=== PATIENT | male | born 2000 | race Caucasian/White ===

== ENCOUNTER 2023-12-06 18:03 | Emergency (ER) | payer MEDICAID, OTHER ==
[~2023-12-06] VITALS: Ht 167.6 cm; Wt 64.2 kg
[2023-12-06 18:57] VITALS: BP 137/95; PULSE 90; RESP 16; TEMP 98.7; O2SAT 96
[2023-12-06] MEDS ORDERED: IBUP1TAB5 PO (19:31)
[2023-12-06] MEDS ORDERED: MUPI2OIN2 EX (19:31)
[2023-12-06] MEDS ORDERED: AUG875T PO (19:31)
[2023-12-06] MEDS: IBUPROFEN 800 MG TAB PO ONE (20:01)
[2023-12-06] MEDS: NEOMYCIN-BACITRACIN-POLYM UNITDOSE PKG TOP OINT TOP ONE (20:01)
[2023-12-06] MEDS: TETANUS-DIPTH-ACEL PERTUSSIS 0.5ML SYR Tdap IM ONE (20:01)
[2023-12-06] MEDS: AMOXICILLIN/CLAVUL 875 MG TAB PO ONE (20:01)
== END 2023-12-06 20:42 | disposition home or self-care (01) ==
LOC: ER 18:05
DX: S61.012A Laceration without foreign body of left thumb without damage to nail, initial encounter (principal); S60.112A Contusion of left thumb with damage to nail, initial encounter; Z79.899 Other long term (current) drug therapy; W54.0XXA Bitten by dog, initial encounter; Y93.89 Activity, other specified; Y92.89 Other specified places as the place of occurrence of the external cause; Y99.8 Other external cause status
CPT/HCPCS: 11740; 73140; 90471; 90715

== ENCOUNTER 2024-05-28 20:55 | Emergency (ER) | payer SELFPAY ==
[~2024-05-28] VITALS: Ht 167.6 cm; Wt 60.3 kg
[~2024-05-28 20:55] MED LIST: AUG875T PO; IBUP1TAB5 PO; MUPI2OIN2 EX
--- NOTE | 2024-05-28 21:26 | ED.PDOC ---
History of Present Illness HPI Comments 23-year-old male with no PMHx or PSHx presents with a chief complaint of flu- like symptoms x 1 week. Patient is endorsing symptoms of poor appetite, cough, fatigue, and vomiting. Patient mentions that he has not had anything to eat for the past x 1 week because whenever he eats or drinks anything he vomits. Patient is tachycardic in the 150s in triage, denies any anxiety or chest pain at this time. Patient states that overall he feels fatigued. No other symptoms or modifying factors present at this time. Chief Complaint: Flu like Time Seen by MD: 21:21 Primary Care Provider: NONE Reviewed Notes: Medications, Allergies Allergies: Coded Allergies: NO KNOWN ALLERGIES (Unverified , 12/06/23) Home Meds Active Scripts Mupirocin (Pseudomonas Fluores (Mupirocin) 2 % Oin, 1 APPLIC EX TID, #15 GM Prov:PARHAMNORALDA Q [employer]SP[employer] SECURITY SCREENER 12/06/23 Ibuprofen Micronized (Ibuprofen) 600 Mg Tab, 1 TAB PO Q6HPRN PRN, #20 TAB as needed for pain Prov:PARHAMCATYALDA Q [employer]SPORTATION SECURITY SCREENER 12/06/23 Amoxicillin & Pot Clavulanate (AUGMENTIN TABLET) 875 Mg Tb, 1 TAB PO BID for 10 Days, #20 TAB Prov:PARHAMCATYALDA Q [employer]SPORTATION SECURITY SCREENER 12/06/23 Information Source: Patient Mode of Arrival: Ambulatory Severity: Moderate Timing: Days Duration: Since onset Prehospital treatment: None Past Medical History PAST MEDICAL HISTORY: Denies Surgical History: Denies all surgeries Family History Family History: Unknown Social History Smoker: Non-Smoker Alcohol: Denies ETOH Use Drugs: Denies Drug Use Lives In: Home Constitutional: reports: fatigue; denies: chills, diaphoresis, fever, malaise, sweats, weakness, others EENTM: denies: blurred vision, double vision, ear bleeding, ear discharge, ear drainage, ear pain, ear ringing, eye pain, eye redness, hearing loss, mouth pain, mouth swelling, nasal discharge, nose bleeding, nose congestion, nose pain, photophobia, tearing, throat pain, throat swelling, voice changes, others Respiratory: reports: cough; denies: hemoptysis, orthopnea, SOB at rest, shortness of breath, SOB with excertion, stridor, wheezing, others Cardiovascular: denies: chest pain, dizzy spells, diaphoresis, Dyspnea on exertion, edema, irregular heart beat, left arm pain, lightheadedness, palpitations, PND, syncope, others Gastrointestinal: reports: poor appetite; denies: abdomen distended, abdominal pain, blood streaked bowels, constipated, diarrhea, dysphagia, difficulty swallowing, hematemesis, melena, nausea, poor fluid intake, rectal bleeding, rectal pain, vomiting, others Genitourinary: denies: burning, dysuria, flank pain, frequency, hematuria, incontinence, penile discharge, penile sore, pain, testicle pain, testicle swelling, urgency, others Neurological: denies: dizziness, fainting, headache, left sided numbness, left sided weakness, numbness, paresthesia, pre-existing deficit, right sided numbness, right sided weakness, seizure, speech problems, tingling, tremors, weakness, others Musculoskeletal: denies: back pain, gout, joint pain, joint swelling, muscle pain, muscle stiffness, neck pain, others Integumetry: denies: bruises, change in color, change in hair/nails, dryness, laceration, lesions, lumps, rash, wounds, others Allergic/Immunocompromised: denies: Difficulty Healing, Frequent Infections, Hives, Itching, others Hematologic/Lymphatic: denies: anemia, blood clots, easy bleeding, easy bruising, swollen glands, others Endocrine: denies: excessive hunger, excessive sweating, excessive thirst, excessive urination, flushing, intolerance to cold, intolerance to heat, unexplained weight gain, unexplained weight loss, others Psychiatric: denies: anxiety, bipolar disorder, depression, hopeless, panic disorder, schizophrenia, sleepless, suicidal, others All Other Systems: Reviewed and Negative Physical Exam General Appearance: No Apparent Distress, Thin HEENT: Normal ENT Inspection, Pharynx Normal, TMs Normal Neck: Full Range of Motion, Non-Tender, Normal, Normal Inspection Respiratory: Chest Non-Tender, Lungs Clear, No Accessory Muscle Use, No Respiratory Distress, Normal Breath Sounds Cardiovascular: No Edema, No JVD, No Murmur, No Gallop, Normal Peripheral Pulses, Tachycardia Breast Exam: Deferred Gastrointestinal: No Organomegaly, Non Tender, No Pulsatile Mass, Normal Bowel Sounds, Soft Genitalia: Deferred Pelvic: Deferred Rectal: Deferred Extremities: No calf tenderness, Normal capillary refill, Normal inspection, Normal range of motion, Non-tender, No pedal edema Musculoskeletal : Apperance: Normal Neurologic: Alert, manager safe II-XII nml as Tested, No Motor Deficits, Normal Affect, Normal Mood, No Sensory Deficits Cerebellar Function: Normal Reflexes: Normal Skin: Dry, Normal Color, Warm Lymphatic: No Adenopathy Was a procedure done? Was a procedure done?: No Differential Dx Considerations may include: Viral syndrome, flu, COVID, gastroenteritis X-Ray, Labs, Meds, VS Vital Signs Date Time Temp Pulse Resp B/P (MAP) Pulse Ox O2 Delivery O2 Flow Rate FiO2 05/29/24 00:43 98.4 138 20 140/87 (104) 97 98.4 05/28/24 21:16 98.7 154 17 138/94 (109) 95 Lab Test 05/28/24 21:15 Range/Units Influenza Type A Antigen Negative Negative Influenza Type B Antigen Negative Negative SARS-CoV-2 Antigen (Rapid) Negative NEGATIVE Current Medications Medications (Trade) Dose Ordered Sig/Gladis Route Start Time Stop Time Status Last Admin Sodium Chloride 1,000 ml @ 1,000 mls/hr Q1H ONCE IV 05/28/24 23:15 05/29/24 00:14 DC 05/29/24 00:53 Ondansetron HCl (Zofran) 4 mg ONCE ONCE IV 05/28/24 23:15 05/28/24 23:16 DC 05/29/24 00:53 Ketorolac Tromethamine (Toradol Injection) 15 mg ONCE ONCE IV 05/28/24 23:15 05/28/24 23:16 DC 05/29/24 00:55 Acetaminophen (Tylenol Tablet) 650 mg ONCE ONCE PO 05/28/24 23:15 05/28/24 23:16 DC 05/29/24 01:03 Time of 1ST Reevaluation: 21:51 Reevaluation 1ST: Unchanged Patient Education/Counseling: Diagnosis, Treatment, Prognosis Family Education/Counseling: No Family Present Departure 1 Departure Time of Disposition: 01:38 (Patient likely with viral gastroenteritis. Patient received fluids Tylenol Zofran. Patient's heart rate has dropped to just about 100. We will discharge patient home with outpatient follow up) Impression: Primary Impression: Gastroenteritis Disposition: HOME / SELF CARE / HOMELESS Condition: Stable Additional Instructions: You likely have gastroenteritis. It is important to stay well hydrated and well rested. This usually resolves within 1 week. If your symptoms worsen or you have any other concerns please return to the ER. e-Prescriptions Ondansetron Odt 4MG Tab (ZOFRAN PO) 4 Mg Tb 4 MG PO TID PRN for 4 Days, #12 TAB ODT TAB-DISSOLVE IN MOUTH, THEN SWALLOW Prov: ASHOK GREGG MD 05/29/24 Discharged With: Self Critical Care Note Critical Care Time?: No Stability Stability form required: No I personally scribed for ASHOK GREGG MD ([email or web address]) on 05/28/24 at 21:26. Electronically submitted by Khoi Hager ([email or web address]). ASHOK GREGG MD May 28, 2024 21:26
[2024-05-28 22:18] LABS: COVID19 ANTIGEN SOFIA FIA NEGATIVE (NEGATIVE); Rapid Influenza A Negative (Negative); Rapid Influenza B Negative (Negative)
[2024-05-29] MEDS: SODIUM CHLORIDE 0.9% 1,000 ML IV ONE (00:53)
[2024-05-29] MEDS: ONDANSETRON HCL 4 MG/2 ML VIAL IV ONE (00:53)
[2024-05-29] MEDS: KETOROLAC TROMETH 30 MG/ML 1ML VIAL IV ONE (00:55)
[2024-05-29] MEDS: ACETAMINOPHEN 325 MG TAB PO ONE (01:03)
[2024-05-29] MEDS ORDERED: ZOFR4T PO (01:39)
[2024-05-29 01:45] VITALS: BP 120/84; PULSE 110; RESP 18; TEMP 98.1; O2SAT 98
== END 2024-05-29 01:52 | disposition home or self-care (01) ==
LOC: ER 20:55
DX: K52.9 Noninfective gastroenteritis and colitis, unspecified (principal); Z20.822 Contact with and (suspected) exposure to COVID-19; Z79.899 Other long term (current) drug therapy
CPT/HCPCS: 36415; 87426; 87804; 96361; 96374; 96375; 99284; J1885; J2405; J7030